=== PATIENT | female | born 1940 | race Caucasian/White ===

== ENCOUNTER 2017-12-09 09:35 | Observation (INO) | payer OTHER ==
[2017-12-09 09:59] LABS: ADD MAN DIFF? NO
[2017-12-09 10:02] LABS: BASOPHILS % 0.4 % (0.0-2.0); EOSINOPHILS # 0.2 10^3/ul (0.0-0.5); HEMATOCRIT 44.3 % (37.0-47.0); HEMOGLOBIN 14.2 g/dl (12.0-16.0); LYMPHOCYTES # 1.3 10^3/ul (0.8-2.9); LYMPHOCYTES % 18.6 % (15.0-51.0); MEAN CORPUSCULAR HEMOGLOBIN 28.5 pg (29.0-33.0); MEAN CORPUSCULAR HGB CONC 32.1 g/dl (32.0-37.0); MEAN CORPUSCULAR VOLUME 88.8 fl (82.0-101.0); MEAN PLATELET VOLUME 10.8 fl (7.4-10.4); MONOCYTE # 0.5 10^3/ul (0.3-0.9); MONOCYTES % 7.1 % (0.0-11.0); NEUTROPHILS % 70.6 % (39.0-77.0); PLATELET COUNT 203 10^3/UL (140-415); RED BLOOD COUNT 4.99 10^6/ul (4.20-5.40); RED CELL DISTRIBUTION WIDTH 14.6 % (11.5-14.5)
[2017-12-09 10:02] LABS: WHITE BLOOD COUNT 7.1 10^3/ul (4.8-10.8)
[2017-12-09 10:23] LABS: ANION GAP 15 (8-16); BLOOD UREA NITROGEN 18 mg/dl (7-20); CALCIUM 9.4 mg/dl (8.4-10.2); CARBON DIOXIDE 23 mmol/L (21-31); CHLORIDE 110 mmol/L (97-110); GLUCOSE 106 mg/dl (70-220); SODIUM 144 mmol/L (135-144)
[2017-12-09 10:34] LABS: B-TYPE NATRIURETIC PEPTIDE 4950 PG/ML (0-450); TROPONIN-I 0.021 ng/ml (0.000-0.120)
[2017-12-09] MEDS: ASPIRIN 81 MG TAB PO ×2 (10:35→12:49)
[2017-12-09] MEDS ORDERED: ONDANSETRON 4 MG INJ IV ×2 (11:30→12:00)
[2017-12-09] MEDS ORDERED: ACETAMINOPHEN 325 MG TAB PO (11:30)
[2017-12-09] MEDS ORDERED: NACL 0.9% 3 ML SYG IV (12:00)
[2017-12-09] MEDS ORDERED: morphine 2 MG INJ IV (12:00)
[2017-12-09] MEDS ORDERED: NITROGLYCERIN (SL) 0.4 MG TAB SL (12:00)
[2017-12-09] MEDS ORDERED: hydrALAzine 20 MG INJ IV (12:30)
[2017-12-09] MEDS: METOPROLOL 25 MG TAB PO (12:49)
[2017-12-09] MEDS: BENAZEPRIL 10 MG TAB PO (12:49)
[2017-12-09] MEDS: ENOXAPARIN 40 MG/0.4 ML SYG SC (12:59)
[2017-12-09] MEDS ORDERED: BENAZEPRIL 10 MG TAB PO (13:00)
[2017-12-09] MEDS: TRIAMTERENE/HCTZ (37.5/25) TAB PO (13:53)
[2017-12-09] MEDS ORDERED: morphine LIQ (10 MG/5 ML) CUP PO (15:00)
[2017-12-09 15:30] LABS: CREATINE KINASE 65 IU/L (23-200)
[2017-12-09 15:43] LABS: CK INDEX 5.1; CK-MB 3.34 ng/ml (0.0-2.4); TROPONIN-I 0.016 ng/ml (0.000-0.120)
[2017-12-09] MEDS ORDERED: VERAPAMIL 5 MG INJ (15:54)
[2017-12-09] MEDS ORDERED: FENTAnyl 50 MCG/ML VIAL (15:54)
[2017-12-09] MEDS ORDERED: LIDOCAINE 1% (MDV) 20 ML INJ (15:54)
[2017-12-09] MEDS ORDERED: MIDAZOLAM 1 MG/ML 2 ML INJ (15:54)
[2017-12-09] MEDS ORDERED: IODIXANOL LOCM 100 ML BTL (15:54)
[2017-12-09] MEDS ORDERED: HEPARIN 1000 UNITS/ML 10 ML INJ (15:54)
[2017-12-09] MEDS ORDERED: NITROGLYCERIN (IC) 100 MCG/ML INJ (15:55)
[2017-12-09] MEDS ORDERED: SOD CHLORIDE 0.9% 500 ML (17:07)
[2017-12-09] MEDS ORDERED: CLOPIDOGREL 300 MG TAB (17:14)
[2017-12-09] MEDS ORDERED: BIVALIRUDIN 250MG /NS 50 ML 50 ML IVPB (17:14)
[2017-12-09] MEDS ORDERED: ASPIRIN 81 MG TAB (17:15)
[2017-12-09] MEDS ORDERED: CANGRELOR TETRASODIUM/ NS 250 50 MG (17:27)
[2017-12-09] MEDS: CLOPIDOGREL 75 MG TAB PO (19:07)
[2017-12-09] MEDS ORDERED: ATORVASTATIN 10 MG TAB PO (21:00)
[2017-12-09] MEDS: ATORVASTATIN 40 MG TAB PO (21:00)
[2017-12-09] MEDS ORDERED: ATROPINE 1 MG/10 ML SYRINGE (22:13)
[2017-12-09 22:40] LABS: CREATINE KINASE 63 IU/L (23-200)
[2017-12-09 22:53] LABS: CK INDEX 4.6; CK-MB 2.91 ng/ml (0.0-2.4); TROPONIN-I 0.026 ng/ml (0.000-0.120)
[2017-12-10] MEDS: SOD CHLORIDE 0.9% 500 ML IV ×2 (01:14→07:56)
[2017-12-10 05:13] LABS: ADD MAN DIFF? NO; BASOPHILS % 0.4 % (0.0-2.0); EOSINOPHILS % 0.4 % (0.0-7.0); HEMATOCRIT 37.9 % (37.0-47.0); HEMOGLOBIN 12.5 g/dl (12.0-16.0); LYMPHOCYTES # 0.7 10^3/ul (0.8-2.9); LYMPHOCYTES % 8.8 % (15.0-51.0); MEAN CORPUSCULAR HEMOGLOBIN 29.3 pg (29.0-33.0); MEAN CORPUSCULAR VOLUME 88.8 fl (82.0-101.0); MEAN PLATELET VOLUME 11.2 fl (7.4-10.4); MONOCYTE # 0.5 10^3/ul (0.3-0.9); MONOCYTES % 6.1 % (0.0-11.0); NEUTROPHIL # 6.9 10^3/ul (1.6-7.5); NEUTROPHILS % 83.9 % (39.0-77.0); PLATELET COUNT 201 10^3/UL (140-415); RED BLOOD COUNT 4.27 10^6/ul (4.20-5.40); RED CELL DISTRIBUTION WIDTH 14.3 % (11.5-14.5)
[2017-12-10 05:13] LABS: WHITE BLOOD COUNT 8.3 10^3/ul (4.8-10.8)
[2017-12-10 05:30] LABS: HEMOGLOBIN A1C 5.8 % (0-5.9)
[2017-12-10 05:46] LABS: ALANINE AMINOTRANSFERASE 25 IU/L (13-69); ALBUMIN 3.3 g/dl (3.3-4.9); ALBUMIN/GLOBULIN RATIO 1.17; ALKALINE PHOSPHATASE 76 IU/L (42-121); ANION GAP 11 (8-16); ASPARTATE AMINO TRANSFERASE 22 IU/L (15-46); BILIRUBIN,INDIRECT 0.6 mg/dl (0-1.1); BILIRUBIN,TOTAL 0.6 mg/dl (0.2-1.3); BLOOD UREA NITROGEN 22 mg/dl (7-20); CALCIUM 9.1 mg/dl (8.4-10.2); CARBON DIOXIDE 22 mmol/L (21-31); CHLORIDE 110 mmol/L (97-110); CHOL/HDL RATIO 3.5 RATIO; CHOLESTEROL 164 mg/dl (100-200); CREATININE 1.12 mg/dl (0.44-1.00); GLUCOSE 121 mg/dl (70-220); HDL CHOLESTEROL 46 mg/dl (33-92); LDL CHOLESTEROL,CALCULATED 89 mg/dl; MAGNESIUM 1.8 mg/dl (1.7-2.5); POTASSIUM 4.3 mmol/L (3.5-5.1); SODIUM 139 mmol/L (135-144); TOTAL PROTEIN 6.1 g/dl (6.1-8.1); TRIGLYCERIDES 146 mg/dl (0-149)
[2017-12-10] MEDS: LEVOTHYROXINE 75 MCG TAB PO (07:55)
[2017-12-10] MEDS: ACETAMINOPHEN 325 MG TAB PO (08:11)
[2017-12-10] MEDS: ASPIRIN 81 MG TAB PO (08:39)
[2017-12-10] MEDS: CLOPIDOGREL 75 MG TAB PO (08:39)
[2017-12-10] MEDS: BENAZEPRIL 5 MG TAB PO (08:40)
[2017-12-10] MEDS: ATORVASTATIN 40 MG TAB PO (20:17)
[2017-12-11] MEDS: ACETAMINOPHEN 325 MG TAB PO ×2 (05:38→11:25)
[2017-12-11] MEDS: LEVOTHYROXINE 75 MCG TAB PO (06:08)
[2017-12-11 06:45] LABS: ADD MAN DIFF? NO
[2017-12-11 06:50] LABS: BASOPHILS % 0.6 % (0.0-2.0); EOSINOPHILS # 0.2 10^3/ul (0.0-0.5); EOSINOPHILS % 3.5 % (0.0-7.0); HEMATOCRIT 36.2 % (37.0-47.0); HEMOGLOBIN 11.8 g/dl (12.0-16.0); LYMPHOCYTES # 1.1 10^3/ul (0.8-2.9); LYMPHOCYTES % 16.3 % (15.0-51.0); MEAN CORPUSCULAR HEMOGLOBIN 28.7 pg (29.0-33.0); MEAN CORPUSCULAR HGB CONC 32.6 g/dl (32.0-37.0); MEAN CORPUSCULAR VOLUME 88.1 fl (82.0-101.0); MEAN PLATELET VOLUME 11.1 fl (7.4-10.4); MONOCYTE # 0.5 10^3/ul (0.3-0.9); NEUTROPHIL # 4.6 10^3/ul (1.6-7.5); NEUTROPHILS % 71.3 % (39.0-77.0); PLATELET COUNT 174 10^3/UL (140-415); RED BLOOD COUNT 4.11 10^6/ul (4.20-5.40); RED CELL DISTRIBUTION WIDTH 14.8 % (11.5-14.5)
[2017-12-11 06:50] LABS: WHITE BLOOD COUNT 6.5 10^3/ul (4.8-10.8)
[2017-12-11 07:11] LABS: ANION GAP 8 (8-16); BLOOD UREA NITROGEN 24 mg/dl (7-20); CALCIUM 8.7 mg/dl (8.4-10.2); CARBON DIOXIDE 23 mmol/L (21-31); CHLORIDE 111 mmol/L (97-110); CREATININE 1.07 mg/dl (0.44-1.00); GLUCOSE 89 mg/dl (70-220); MAGNESIUM 1.9 mg/dl (1.7-2.5); POTASSIUM 3.9 mmol/L (3.5-5.1); SODIUM 138 mmol/L (135-144)
[2017-12-11] MEDS: CLOPIDOGREL 75 MG TAB PO (08:19)
[2017-12-11] MEDS: ASPIRIN 81 MG TAB PO (08:19)
[2017-12-11] MEDS: BENAZEPRIL 5 MG TAB PO (08:20)
== END 2017-12-11 13:40 | disposition home or self-care (01) ==
LOC: E/R 09:35 → MS4 11:10 → ICU 18:39
DX: I25.110 Atherosclerotic heart disease of native coronary artery with unstable angina pectoris (principal); E78.5 Hyperlipidemia, unspecified; E03.9 Hypothyroidism, unspecified; I11.0 Hypertensive heart disease with heart failure; I50.40 Unspecified combined systolic (congestive) and diastolic (congestive) heart failure; I25.5 Ischemic cardiomyopathy
CPT/HCPCS: 36415; 71045; 80048; 80053; 80061; 82550; 82553; 82962; 83036; 83735; 83880; 84100; 84443; 84484; 85025; 93005; 93306; 93458; 93970; 99217; 99285-25; G0378